=== PATIENT | female | born 1980 ===

== ENCOUNTER 2017-12-15 15:32 | Outpatient (CLI) | payer OTHER ==
[2017-12-17 10:09] LABS: VARICELLA ZOSTER IgG 1034 index (Immune >165)
[2017-12-17 12:10] LABS: RUBELLA AB, IgG 3.29 index (Immune >0.99)
== END 2017-12-15 23:59 | disposition home or self-care (01) ==
LOC: LAB 15:32
DX: Z01.818 Encounter for other preprocedural examination (principal)
CPT/HCPCS: 36415